=== PATIENT | female | born 1955 | race Caucasian/White ===

== ENCOUNTER 2021-01-11 08:50 | Day surgery (SDC) | payer BC, SELFPAY ==
--- NOTE | 2021-01-11 06:23 | ANES.PREOP_ITS ---
General Info Date of Service Date Performed: 01/11/21 Height: 5 ft Weight: 63.049 kg Body Mass Index (BMI): 27.1 Surgical Procedure: Operation Date: 01/11/21 11:40 Proposed Procedures Side Surgeon p Cataract Extraction with IOL Implant Left Rigo Frederick MD Meds Allergies and Home Medications Allergies Allergy/AdvReac Type Severity Reaction Status Date / Time hydromorphone [From Dilaudid] Allergy Severe Itching Unverified 01/11/21 09:24 adhesive tape Allergy Intermediate Itching Unverified 01/11/21 09:24 Home Medication Medication Instructions Recorded calcium citrate 1,200 mg PO DAILY 01/06/21 cyanocobalamin (vitamin B-12) 3,000 mcg PO DAILY 01/06/21 [Vitamin B-12] ergocalciferol (vitamin D2) 50,000 unit PO DIRECTED 01/06/21 [Vitamin D2] multivitamin with iron 1 tab PO BID 01/06/21 omeprazole 40 mg PO DAILY 01/06/21 [facility] Medical History Medical History Atrophic vaginitis Breast lump Depressive disorder Enthesopathy of hip region Genuine stress incontinence, female HTN (hypertension) Hyperlipidemia Hypersomnia IFG (impaired fasting glucose) Menopause present Neoplasm of uncertain behavior of skin Obesity GIULIANO (obstructive sleep apnea) Recurrent major depression Umbilical hernia without obstruction and without gangrene Surgical History Surgical History (Updated 01/11/21 @ 09:24 by Diana Sanches) History of bladder surgery Hx of abdominoplasty Hx of appendectomy Hx of bilateral breast reduction surgery Hx of cholecystectomy Hx of gastric bypass Hx of hysterectomy Hx of LASIK Hx of repair of rotator cuff right Hx of tonsillectomy Hx of umbilical hernia repair Tobacco Smoking/Tobacco Use Status: Never Alcohol Alcohol Intake: current Alcohol intake frequency: a few times a week Alcohol type: wine Substance Use Substance use type: does not use Vital Signs and Lab Results Vital Signs Most Recent Vital Signs in EMR: Temp Pulse Resp BP Pulse Ox 36 C L 64 16 161/88 H 98 01/11/21 09:34 01/11/21 09:34 01/11/21 09:34 01/11/21 09:34 01/11/21 09:34 Lab Results Blood Type / Crossmatch: No Data to Display Complete Blood Count: No Data to Display Complete Metabolic Panel: No Data to Display Liver Function Panel: No Data to Display Coagulation Panel: No Data to Display Cardiac Panel: No Data to Display Arterial Blood Gas: No Data to Display Venous Blood Gas: No Data to Display Pancreas Panel: No Data to Display Thyroid Panel: No Data to Display Infectious Disease: No Data to Display Blood Cultures: No Data to Display Toxicology Panel: No Data to Display Anesthesia Assessment and Plan Anesthesia History Personal History: No History of Anesthesia Complications Family History: No Family History of Anesthesia Complications Exercise Tolerance Exercise Tolerance: Metabolic Equivalents>4 Cardiac & Pulmonary Exam Cardiac Exam: Normal S1/S2 Heart Sounds Pulmonary Exam: Clear Bilateral Breath Sounds Airway Exam Known Difficult Airway: No Mallampati Class: 1 Mouth Opening: Normal (> 3cm) Thyromental Distance: Greater than 3 cm Neck Range of Motion: Full ROM Neck Circumference: Normal Teeth Condition: Normal Dentition ASA Classification ASA Score: ASA 2 Emergency Case?: No NPO Status NPO Status: NPO Clears >2 hours, Solids >8 hours Anesthesia Plan Resuscitation Status: Full Code Anesthesia Technique: MAC Anesthesia Airway Planned: Natural Airway Monitors Used: Standard Monitors
[2021-01-11] MEDS: Tropicam./Phenyleph. (1/2.5%) 5 ML BTL OS ×3 (09:27→09:45)
[2021-01-11 09:34] VITALS: BP 161/88; PULSE 64; RESP 16; TEMP 36; O2SAT 98
[2021-01-11 09:59] VITALS: BMI 27.1
[2021-01-11] MEDS: Tetracaine 0.5% 4 ML BTL OS (10:30)
[2021-01-11] MEDS: Balanced Salt Soln.-PLUS 500 ML BAG (10:31)
[2021-01-11] MEDS: Duovisc Viscoelastic System EACH 1 EACH (10:31)
[2021-01-11] MEDS: Lidocaine 1% Pres-Free 5 ML VIAL (10:32)
[2021-01-11] MEDS: Lidocaine 2% Jelly 6 ML SYR (10:32)
[2021-01-11] MEDS: Povidone-Iodine Ophth 30 ML BTL (10:34)
--- NOTE | 2021-01-11 10:39 | W.ANESPOSTOP ---
Postoperative Evaluation Date, Time and Location Date Performed: 01/11/21 Time Performed: 10:49 Patient Location: Day Surgery Unit Vital Signs Most Recent Imported Vital Signs: Most Recent Vital Signs Temp Pulse Resp BP Pulse Ox 36 C L 64 16 161/88 H 98 01/11/21 09:34 01/11/21 09:34 01/11/21 09:34 01/11/21 09:34 01/11/21 09:34 Most Recent Manually Entered Vital Signs: Adult Blood Pressure: 143/80 Heart Rate: 58 Respirations: 12 Oxygen Saturation (%): 97 Temperature (C): 36.8 C Pain Score (0-10 Scale): 0 Pain Score Most Recent Pain Score: Most Recent Pain Score Pain Level 0 01/11/21 09:34 Assessment Mental Status: Awake (Alert & Oriented to Patient Baseline) Airway and Respiratory Function: Patent airway with normal (patient baseline) respiratory exam Cardiovascular Function: Hemodynamically Stable Hydration Status: Adequately Hydrated Nausea & Vomiting: No Nausea or Vomiting Pain: Pt. Denies Any Pain Peripheral Nerve Block: Patient did not receive a nerve block
[2021-01-11 10:50] VITALS: BP 143/80; PULSE 58; RESP 12; TEMPC 36.8; O2SAT 97
--- NOTE | 2021-01-11 10:51 | PDOC.DSDIS_ITS ---
Discharge Plan Disposition Patient Disposition: HOME Condition: Good Discharge Details Attending Provider: Rigo Frederick Primary Care Provider: Eleno García [place] Meds and New Rx's Prescriptions: No Action cyanocobalamin (vitamin B-12) [Vitamin B-12] 1,000 mcg Tablet 3,000 mcg PO DAILY RF: 0 omeprazole 40 mg Capsule,Delayed Release(Dr/Ec) 40 mg PO PRN PRNRF: 0 calcium citrate 150 mg Capsule 1,200 mg PO DAILY RF: 0 ergocalciferol (vitamin D2) [Vitamin D2] 1,250 mcg (50,000 unit) Capsule 50,000 unit PO DIRECTED RF: 0 multivitamin with iron Tablet 1 tab PO BID RF: 0 Discharge Instructions Stand Alone Forms: Post-op Block Cataract, Post-op Topical Cataract, Press Ganey (DSU) Discharge Orders Discharge Orders: Discharge Order (Routine); Ordered 01/11/21 Ordered By: Rigo Frederick DS: Diagnosis Discharge Diagnosis (1) Cortical cataract of left eye: Status: Resolved (2) Nuclear sclerotic cataract of left eye: Status: Resolved
[2021-01-11 10:52] VITALS: BP 143/80; PULSE 66; RESP 18; TEMP 36.8; O2SAT 97
--- NOTE | 2021-01-11 10:52 | W.PM.OP ---
Date of service: 01/11/21 Time of Service: 10:52 Operative Note Operative Note DATE OF PROCEDURE: 01/11/21 PRE-OP DIAGNOSIS: Nuclear/cortical cataract, left eye Status post myopic Lasik, left eye POST-OP DIAGNOSIS: same PROCEDURE: Cataract extraction using phacoemulsification with intraocular lens implant, left eye SURGEON: Rigo Frederick ANESTHESIA TYPE: Local By Surgeon and MAC Refer to Anesthesia Record PATHOLOGY: none sent COMPLICATIONS: None Patient was transported to: same day Patient's condition: stable Implants: Popeye [employer] Popeye Vision / [employer] Tecnis [id number] Indications: Progressive decreased vision due to cataract, left eye Procedure Description: CATARACT SURGERY OPERATIVE REPORT PREOPERATIVE DIAGNOSIS: Nuclear/cortical cataract, left eye Status post myopic LASIK, left eye POSTOPERATIVE DIAGNOSIS: Same OPERATION: Cataract extraction using phacoemulsification with posterior chamber intraocular lens implant, left eye. IOL: IOL Black Off Worker/Model: [employer]J Vision / ROXANA Tecnis [id number] IOL Power: + 18.5 diopters IOL Serial Number: [id number] Optic Diameter: 6.0mm Haptic/Overall Diameter: 13.0mm PHACO INFO: Elvin Higher Oneurion Vision System with OZil and Active Fluidics Cumulative Dispersed Energy (CDE): 6.49 seconds SURGEON: Rigo Frederick MD, ROLAN ANESTHESIA: Monitored Anesthesia Care (MAC), with local sub-tenon's anesthetic infiltration COMPLICATIONS: None SPECIMENS: None INDICATIONS FOR PROCEDURE: Patient is a 65-year-old lady with history of myopia who has undergone previous myopic LASIK vision correction. She has now developed a symptomatic nuclear and cortical cataract of the left eye. The option of cataract surgery was offered to the patient and she wished to proceed. PROCEDURE: The correct surgical eye was identified and marked as the left eye and the pupil was dilated in the preoperative area using mydriatics and cycloplegics. The dilated pupil size was 7.0 mm. Oral sedation was administered in the form of an Imprimis MKO Melt (midazolam 3mg/ketamine 25mg/ondansetron 2mg). The patient was brought to the operating room where cardiopulmonary monitoring was instituted and surgical time-out was performed, confirming the correct operative eye and IOL power. Topical anesthesia was administered and ophthalmic povidone-iodine 5% was instilled into the conjunctival fornices. Lidocaine gel was applied to the cornea and the sydney-ocular area was prepped with Betadine 10% solution and draped in the usual sterile fashion for intraocular surgery, including an aperture drape. A Tegaderm transparent film dressing was cut in half and used to cover the lashes and lid margins. Care was taken to sequester the lashes and lid margins under the Tegaderm dressing. A lid speculum was placed between the lids of the operative eye and the Wilma-Rishabh operating microscope was maneuvered into position. Adamaris scissors were then used to make a conjunctival buttonhole approximately 6mm posterior to the limbus in the inferonasal quadrant. Blunt dissection was carried out to expose bare sclera, and a blunt-tipped sub-tenon?s anesthesia cannula was introduced and passed posteriorly along the globe where non-preserved plain lidocaine was injected into posterior sub-Tenon?s space. A sideport knife was used to make a paracentesis port superior/superiortemporally. Intraocular phenylephrine/lidocaine was injected into the anterior chamber. The anterior chamber was then filled with viscoelastic. A 2.4mm keratome knife was used to create a half-thickness groove at the limbus and then to construct a three-plane near-clear corneal tunnel extending 2.0mm into clear cornea in the temporal position. . A flap was raised on the anterior capsule and capsulorhexis forceps were used to complete a continuous curvilinear capsulorhexis of 5.5 mm. Balanced salt solution was then used to perform cortical cleaving hydrodissection and nuclear hydrodelineation until the lens could be freely rotated within the capsular bag. The lens nucleus was then disassembled and removed within the capsular bag and iris plane using phacoemulsification. Residual cortical material was removed using the 45-degree angled silicone I/A tip with 0.3mm port. The posterior capsule was carefully polished to remove as much residual lens epithelial cells as safely possible. The capsular bag was then inflated and the anterior chamber deepened with viscoelastic. The lens implant described above was inserted into the capsular bag using the ROXANA [place] Injector. A Kuglen hook was used to dial the IOL into position. Residual viscoelastic was then removed first from posterior to the IOL, then from the anterior chamber using the I/A handpiece. The lens implant was noted to center nicely within the capsular bag. The incisions were stromally hydrated, and the anterior chamber was reformed using BSS. Then 0.5cc of moxifloxacin 1.0mg/ml were injected into the capsular bag and anterior chamber. The incisions were checked with a Weck spear and found to be secure. Several drops of ophthalmic povidone-iodine 5% were then applied to the eye followed by two drops of Imprimis combination prednisolone/moxifloxacin/nepafenac solution. The drapes were removed and a clear plastic protective eye shield was placed over the eye. The patient was then returned to Same Day Surgery in stable condition.
[2021-01-11 11:12] VITALS: BP 142/68; PULSE 67; RESP 18; TEMP 37; O2SAT 97
== END 2021-01-11 11:20 | disposition home or self-care (01) ==
PROVIDERS: PCP Neuromusculoskeletal Medicine & OMM; Visit Provider Ophthalmology
PROC: (CPT 66984; principal; 2021-01-11 11:30)
DX: H25.12 Age-related nuclear cataract, left eye (principal); I10 Essential (primary) hypertension; E78.5 Hyperlipidemia, unspecified
CPT/HCPCS: 66984; V2632

== ENCOUNTER 2021-01-22 08:50 | Day surgery (SDC) | payer BC, SELFPAY ==
--- NOTE | 2021-01-22 06:22 | ANES.PREOP_ITS ---
General Info Date of Service Date Performed: 01/22/21 Height: 5 ft Weight: 65.5 kg Body Mass Index (BMI): 28.2 Surgical Procedure: Operation Date: 01/22/21 11:10 Proposed Procedures Side Surgeon p Cataract Extraction with IOL Implant Right Rigo Frederick MD Meds Allergies and Home Medications Allergies Allergy/AdvReac Type Severity Reaction Status Date / Time hydromorphone [From Dilaudid] Allergy Severe Itching Unverified 01/22/21 09:09 adhesive tape Allergy Intermediate Itching Unverified 01/22/21 09:09 Home Medication Medication Instructions Recorded calcium citrate 1,200 mg PO DAILY 01/06/21 cyanocobalamin (vitamin B-12) 3,000 mcg PO DAILY 01/06/21 [Vitamin B-12] ergocalciferol (vitamin D2) 50,000 unit PO DIRECTED 01/06/21 [Vitamin D2] multivitamin with iron 1 tab PO BID 01/06/21 omeprazole 40 mg PO PRN PRN 01/06/21 Current Visit Medications: Current Medications Generic Name Dose Route Start Last Admin Trade Name Freq PRN Reason Stop Dose Admin Acetaminophen 1,000 mg 01/22/21 06:00 Acetaminophen 500 Mg Tab PO Q4H PRN PRN Miscellaneous Medication 0 ml 01/22/21 06:00 Prednisolone 1%, Moxifloxacin 0.5%, Nepafenac 0.1% 5ml Btl OD DIRECTED [facility] [place] Miscellaneous Medication 0 ml 01/22/21 06:00 Tropicam./Phenyleph. (1/2.5%) 5 Ml Btl OD DIRECTED [facility] [place] Tetracaine HCl 0 ml 01/22/21 06:00 Tetracaine 0.5% 4 Ml Btl OD DIRECTED [facility] [place] PFSH Active Problems Active Problems: Problem Status Onset Code Cortical cataract of right eye H26.9 Nuclear sclerotic cataract of right eye H25.11 Nuclear sclerotic cataract of left eye H25.12 Cortical cataract of left eye H26.9 Medical History Medical History Atrophic vaginitis Breast lump Depressive disorder Enthesopathy of hip region Genuine stress incontinence, female HTN (hypertension) Hyperlipidemia Hypersomnia IFG (impaired fasting glucose) Menopause present Neoplasm of uncertain behavior of skin Obesity GIULIANO (obstructive sleep apnea) Recurrent major depression Umbilical hernia without obstruction and without gangrene Surgical History Surgical History (Updated 01/22/21 @ 09:08 by Diana Sanches) History of bladder surgery Hx of abdominoplasty Hx of appendectomy Hx of bilateral breast reduction surgery Hx of cataract surgery Hx of cholecystectomy Hx of gastric bypass Hx of hysterectomy Hx of LASIK Hx of repair of rotator cuff right Hx of tonsillectomy Hx of umbilical hernia repair Tobacco Smoking/Tobacco Use Status: Never Alcohol Alcohol Intake: current Alcohol intake frequency: a few times a week Alcohol type: wine Substance Use Substance use type: does not use Vital Signs and Lab Results Vital Signs Most Recent Vital Signs in EMR: Temp Pulse Resp BP Pulse Ox 36.4 C L 61 16 154/89 H 97 01/22/21 09:10 01/22/21 09:10 01/22/21 09:10 01/22/21 09:10 01/22/21 09:10 Lab Results Blood Type / Crossmatch: No Data to Display Complete Blood Count: No Data to Display Complete Metabolic Panel: No Data to Display Liver Function Panel: No Data to Display Coagulation Panel: No Data to Display Cardiac Panel: No Data to Display Arterial Blood Gas: No Data to Display Venous Blood Gas: No Data to Display Pancreas Panel: No Data to Display Thyroid Panel: No Data to Display Infectious Disease: No Data to Display Blood Cultures: No Data to Display Toxicology Panel: No Data to Display Anesthesia Assessment and Plan Anesthesia History Personal History: No History of Anesthesia Complications Family History: No Family History of Anesthesia Complications Exercise Tolerance Exercise Tolerance: Metabolic Equivalents>4 Cardiac & Pulmonary Exam Cardiac Exam: Normal S1/S2 Heart Sounds Pulmonary Exam: Clear Bilateral Breath Sounds Airway Exam Known Difficult Airway: No Mallampati Class: 1 Mouth Opening: Normal (> 3cm) Thyromental Distance: Greater than 3 cm Neck Range of Motion: Full ROM Neck Circumference: Normal Teeth Condition: Normal Dentition ASA Classification ASA Score: ASA 2 Emergency Case?: No NPO Status NPO Status: NPO Clears >2 hours, Solids >8 hours Anesthesia Plan Resuscitation Status: Full Code Anesthesia Technique: MAC Anesthesia Airway Planned: Natural Airway Monitors Used: Standard Monitors Preoperative Comments:: no health history change.
[2021-01-22 09:10] VITALS: BP 154/89; PULSE 61; RESP 16; TEMP 36.4; O2SAT 97
[2021-01-22] MEDS: Tropicam./Phenyleph. (1/2.5%) 5 ML BTL OD ×3 (09:12→09:23)
[2021-01-22 09:19] VITALS: BMI 28.2
[2021-01-22] MEDS: Povidone-Iodine Ophth 30 ML BTL (10:28)
[2021-01-22] MEDS: Lidocaine 2% Jelly 6 ML SYR (10:30)
[2021-01-22] MEDS: Lidocaine 1% Pres-Free 5 ML VIAL (10:30)
[2021-01-22] MEDS: Duovisc Viscoelastic System EACH 1 EACH (10:31)
[2021-01-22] MEDS: Balanced Salt Soln.-PLUS 500 ML BAG (10:31)
[2021-01-22] MEDS: Tetracaine 0.5% 4 ML BTL OD (10:32)
[2021-01-22 10:45] VITALS: BP 134/74; PULSE 59; RESP 16; TEMP 36.4; O2SAT 96
--- NOTE | 2021-01-22 10:47 | PDOC.DSDIS_ITS ---
Discharge Plan Disposition Patient Disposition: HOME Condition: Good Discharge Details Reason For Visit: CATARACT Attending Provider: Rigo Frederick Primary Care Provider: Eleno García [place] Meds and New Rx's Prescriptions: No Action cyanocobalamin (vitamin B-12) [Vitamin B-12] 1,000 mcg Tablet 3,000 mcg PO DAILY RF: 0 omeprazole 40 mg Capsule,Delayed Release(Dr/Ec) 40 mg PO PRN PRNRF: 0 calcium citrate 150 mg Capsule 1,200 mg PO DAILY RF: 0 ergocalciferol (vitamin D2) [Vitamin D2] 1,250 mcg (50,000 unit) Capsule 50,000 unit PO DIRECTED RF: 0 multivitamin with iron Tablet 1 tab PO BID RF: 0 Discharge Instructions Stand Alone Forms: Post-op Topical Cataract, Rakan Tamez (DSU) Discharge Orders Discharge Orders: Discharge Order (Routine); Ordered 01/22/21 Ordered By: Rigo Frederick DS: Diagnosis Discharge Diagnosis (1) Nuclear sclerotic cataract of right eye: Status: Resolved (2) Cortical cataract of right eye: Status: Resolved
--- NOTE | 2021-01-22 10:48 | ROE_ITS ---
Date of service: 01/22/21 Time of Service: 10:48 Operative Note Operative Note DATE OF PROCEDURE: 01/22/21 PRE-OP DIAGNOSIS: Nuclear/cortical cataract, right eye Status post myopic LASIK POST-OP DIAGNOSIS: same PROCEDURE: Cataract extraction using phacoemulsification with intraocular lens implant, right eye SURGEON: Rigo Frederick ANESTHESIA TYPE: Local By Surgeon and MAC Refer to Anesthesia Record ESTIMATED BLOOD LOSS: 0 PATHOLOGY: none sent COMPLICATIONS: None Patient was transported to: same day Patient's condition: stable Implants: Popeye and Popeye Vision / [employer] Tecnis [id number] intraocular lens Indications: Progressive decreased vision due to cataract, right eye Procedure Description: CATARACT SURGERY OPERATIVE REPORT PREOPERATIVE DIAGNOSIS: Nuclear/cortical cataract, right eye Status post myopic LASIK POSTOPERATIVE DIAGNOSIS: Same OPERATION: Cataract extraction using phacoemulsification with posterior chamber intraocular lens implant, right eye. IOL: IOL Scenic Arts Supervisor/Model: J[employer]J Vision / ROXANA Tecnis ZCB00 IOL Power: + 18.5 diopters IOL Serial Number: [id number] Optic Diameter: 6.0mm Haptic/Overall Diameter: 13.0mm PHACO INFO: Elvin iHearturion Vision System with OZil and Active Fluidics Cumulative Dispersed Energy (CDE): 6.84 seconds SURGEON: Rigo Frederick MD, ROLAN ANESTHESIA: Monitored Anesthesia Care (MAC), with local sub-tenon's anesthetic infiltration COMPLICATIONS: None SPECIMENS: None INDICATIONS FOR PROCEDURE: The patient is a 65-year-old lady with history of undergoing myopic LASIK in both eyes. She has now developed symptomatic bilateral nuclear and cortical cataract. She has already undergone cataract surgery in the left eye and is doing well postoperatively. She now presents for cataract surgery in the right eye. PROCEDURE: The correct surgical eye was identified and marked as the right eye and the pupil was dilated in the preoperative area using mydriatics and cycloplegics. The dilated pupil size was 8.0 mm. Oral sedation was administered in the form of an Imprimis MKO Melt (midazolam 3mg/ketamine 25mg/ondansetron 2mg). The patient was brought to the operating room where cardiopulmonary monitoring was instituted and surgical time-out was performed, confirming the correct operative eye and IOL power. Topical anesthesia was administered and ophthalmic povidone-iodine 5% was instilled into the conjunctival fornices. Lidocaine gel was applied to the cornea and the sydney-ocular area was prepped with Betadine 10% solution and draped in the usual sterile fashion for intraocular surgery, including an aperture drape. A Tegaderm transparent film dressing was cut in half and used to cover the lashes and lid margins. Care was taken to sequester the lashes and lid margins under the Tegaderm dressing. A lid speculum was placed between the lids of the operative eye and the Wilma-Rishabh operating microscope was maneuvered into position. Adamaris scissors were then used to make a conjunctival buttonhole approximately 6mm posterior to the limbus in the inferonasal quadrant. Blunt dissection was carried out to expose bare sclera, and a blunt-tipped sub-tenon?s anesthesia cannula was introduced and passed posteriorly along the globe where non- preserved plain lidocaine was injected into posterior sub-Tenon?s space. A sideport knife was used to make a paracentesis port inferiortemporally. Intraocular phenylephrine/lidocaine was injected into the anterior chamber. The anterior chamber was then filled with viscoelastic. A 2.4mm keratome knife was used to create a half-thickness groove at the limbus and then to construct a three-plane near-clear corneal tunnel extending 2.0mm into clear cornea in the superiortemporal position. . A flap was raised on the anterior capsule and capsulorhexis forceps were used to complete a continuous curvilinear capsulorhexis of 5.0 mm. Balanced salt solution was then used to perform cortical cleaving hydrodissection and nuclear hydrodelineation until the lens could be freely rotated within the capsular bag. The lens nucleus was then disassembled and removed within the capsular bag and iris plane using phacoemulsification. Residual cortical material was removed using the I/A handpiece. The posterior capsule was carefully polished to remove as much residual lens epithelial cells as safely possible. The capsular bag was then inflated and the anterior chamber deepened with viscoelastic. The lens implant described above was inserted into the capsular bag using the ROXANA [place] Injector. A Kuglen hook was used to dial the IOL into position. Residual viscoelastic was then removed first from posterior to the IOL, then from the anterior chamber using the I/A handpiece. The lens implant was noted to center nicely within the capsular bag. The incisions were stromally hydrated, and the anterior chamber was reformed using BSS. Then 0.5cc of moxifloxacin 1.0mg/ml were injected into the capsular bag and anterior chamber. The incisions were checked with a Weck spear and found to be secure. Several drops of ophthalmic povidone-iodine 5% were then applied to the eye followed by two drops of Imprimis combination prednisolone/moxifloxacin/nepafenac solution. The drapes were removed and a clear plastic protective eye shield was placed over the eye. The patient was then returned to Same Day Surgery in stable condition.
--- NOTE | 2021-01-22 10:58 | W.ANESPOSTOP ---
Postoperative Evaluation Date, Time and Location Date Performed: 01/22/21 Time Performed: 10:58 Patient Location: Day Surgery Unit Vital Signs Most Recent Imported Vital Signs: Most Recent Vital Signs Temp Pulse Resp BP Pulse Ox 36.4 C L 59 L 16 134/74 96 01/22/21 10:45 01/22/21 10:45 01/22/21 10:45 01/22/21 10:45 01/22/21 10:45 Pain Score Most Recent Pain Score: Most Recent Pain Score Pain Level 0 01/22/21 10:45 Assessment Mental Status: Awake (Alert & Oriented to Patient Baseline) Airway and Respiratory Function: Patent airway with normal (patient baseline) respiratory exam Cardiovascular Function: Hemodynamically Stable Hydration Status: Adequately Hydrated Nausea & Vomiting: No Nausea or Vomiting Pain: Pt. Denies Any Pain Peripheral Nerve Block: Patient did not receive a nerve block
[2021-01-22 11:19] VITALS: BP 151/69; PULSE 71; RESP 16; TEMP 36.8; O2SAT 96
== END 2021-01-22 11:25 | disposition home or self-care (01) ==
PROVIDERS: PCP Neuromusculoskeletal Medicine & OMM; Visit Provider Ophthalmology
PROC: (CPT 66984; principal; 2021-01-22 11:00)
DX: H25.11 Age-related nuclear cataract, right eye (principal); G47.33 Obstructive sleep apnea (adult) (pediatric); I10 Essential (primary) hypertension
CPT/HCPCS: 66984; V2632